=== PATIENT | female | born 1990 | race Caucasian/White ===

== ENCOUNTER → 2018-02-17 | Day surgery (SDC) | payer OTHER ==
[~2018-02-17] MED LIST: BUPIVACAINE HCL 0.5 % INJ/PF 30 ML SDV ONE; LIDOCAINE 1% INJ-PF (10 MG/ML) 30 ML SDV ONE; METHYLPREDNISOLONE ACETATE INJ 40 MG/1 ML ML ONE
--- NOTE | 2018-02-17 14:23 | RADIOLOGY REPORT (SQ) ---
EXAM DESCRIPTION: INJECT/ASPIR HIP/SHLDR/KNEE; FLUORO/NEEDLE PLACEMENT COMPLETED DATE/TIME: 02/17/2018 1:38 pm REASON FOR STUDY: LEFT HIP PAIN (M25.552) S/P L HIP SCOPE ON 08/29/17 M25.552 PAIN IN LEFT HIP COMPARISON: None. FLUOROSCOPY TIME: 14 seconds 1 images saved to PACS. LIMITATIONS: None. PROCEDURE: SITE OF INJECTION: Left hip LOCALIZING CONTRAST TYPE AND DOSE: 1 mL Omnipaque MEDICATION TYPE AND DOSE: 80 mg Depo-Medrol, 5 mL 0.5% Sensorcaine. Using local anesthesia and sterile technique with fluoroscopic guidance, the needle was advanced into the joint. Iodinated contrast was injected to verify intraarticular placement. This was followed by therapeutic injection of the indicated medications. The needle was removed. There were no immediat e complications. Preprocedure pain level: 3/10. Postprocedure pain level: 0/10. IMPRESSION: THERAPEUTIC INJECTION OF THE LEFT HIP JOINT ABOVE. COMMENT: Patient medication list reviewed: Yes- Quality ID# [id number]:Eligible professional attests to doc umenting in the medical record they obtained, updated, or reviewed the patient's current medications. . Quality ID 145: Final reports for procedures using fluoroscopy that document radiation exposure chantal alyson, or exposure time and number of fluorographic images (if radiation exposure indices are not avail able) TECHNICAL DOCUMENTATION: JOB ID: [id number] [email or web address]- All Rights Reserved Reading location - IP/workstation name: [email or web address] [id number]
--- NOTE | 2018-02-17 14:23 | RADIOLOGY REPORT (SQ) ---
EXAM DESCRIPTION: INJECT/ASPIR HIP/SHLDR/KNEE; FLUORO/NEEDLE PLACEMENT COMPLETED DATE/TIME: 02/17/2018 1:38 pm REASON FOR STUDY: LEFT HIP PAIN (M25.552) S/P L HIP SCOPE ON 08/29/17 M25.552 PAIN IN LEFT HIP COMPARISON: None. FLUOROSCOPY TIME: 14 seconds 1 images saved to PACS. LIMITATIONS: None. PROCEDURE: SITE OF INJECTION: Left hip LOCALIZING CONTRAST TYPE AND DOSE: 1 mL Omnipaque MEDICATION TYPE AND DOSE: 80 mg Depo-Medrol, 5 mL 0.5% Sensorcaine. Using local anesthesia and sterile technique with fluoroscopic guidance, the needle was advanced into the joint. Iodinated contrast was injected to verify intraarticular placement. This was followed by therapeutic injection of the indicated medications. The needle was removed. There were no immediat e complications. Preprocedure pain level: 3/10. Postprocedure pain level: 0/10. IMPRESSION: THERAPEUTIC INJECTION OF THE LEFT HIP JOINT ABOVE. COMMENT: Patient medication list reviewed: Yes- Quality ID# [id number]:Eligible professional attests to doc umenting in the medical record they obtained, updated, or reviewed the patient's current medications. . Quality ID 145: Final reports for procedures using fluoroscopy that document radiation exposure chantal alyson, or exposure time and number of fluorographic images (if radiation exposure indices are not avail able) TECHNICAL DOCUMENTATION: JOB ID: [id number] [employer]- All Rights Reserved Reading location - IP/workstation name: [email or web address] [id number]
== END ==
LOC: RAD 12:22
PROVIDERS: ATTEND Orthopaedic Surgery Sports Medicine
DX: M25.552 Pain in left hip (principal)
CPT/HCPCS: 20610; 77002; J3490 ×2; J1020

== ENCOUNTER → 2018-04-02 | Day surgery (SDC) | payer OTHER ==
[~2018-04-02] MED LIST changes: -METHYLPREDNISOLONE ACETATE INJ 40 MG/1 ML ML ONE; +METHYLPREDNISOLONE ACETATE INJ 80 MG/1 ML VIAL ONE
--- NOTE | 2018-04-02 16:00 | RADIOLOGY REPORT (SQ) ---
EXAM DESCRIPTION: INJECT/ASPIR HIP/SHLDR/KNEE; FLUORO/NEEDLE PLACEMENT COMPLETED DATE/TIME: 04/02/2018 1:57 pm REASON FOR STUDY: PAIN IN LEFT HIP (M25.552), OTHER SPECIFIED JOINT DISORDERS, LEFT HIP (M25. M25.85 2 OTHER SPECIFIED JOINT DISORDERS, LEFT HIP M25.552 PAIN IN LEFT HIP COMPARISON: None. FLUOROSCOPY TIME: 48 seconds of fluoroscopy was used. 2 images saved to PACS. LIMITATIONS: None. PROCEDURE: SITE OF INJECTION: Left iliopsoas tendon sheath injection LOCALIZING CONTRAST TYPE AND DOSE: 2 mL MEDICATION TYPE AND DOSE: 80 mg Depo-Medrol and 80 mL of Sensorcaine Using local anesthesia and sterile technique with fluoroscopic guidance, the needle was advanced into the iliopsoas tendon sheath bursa. Iodinated contrast was injected to verify intraarticular placemen t. This was followed by therapeutic injection of the indicated medications. The needle was removed. There were no immediate complications. Preprocedure pain level: 6/10. Postprocedure pain level: 2/10. IMPRESSION: THERAPEUTIC INJECTION OF THE LEFT ILEO PSOAS TENDON SHEATH ABOVE. COMMENT: Patient medication list reviewed: Yes- Quality ID# [id number]:Eligible professional attests to doc umenting in the medical record they obtained, updated, or reviewed the patient's current medications. . Quality ID 145: Final reports for procedures using fluoroscopy that document radiation exposure chantal alyson, or exposure time and number of fluorographic images (if radiation exposure indices are not avail able) TECHNICAL DOCUMENTATION: JOB ID: [id number] [employer]- All Rights Reserved Reading location - IP/workstation name: [email or web address] [id number]
--- NOTE | 2018-04-02 16:00 | RADIOLOGY REPORT (SQ) ---
EXAM DESCRIPTION: INJECT/ASPIR HIP/SHLDR/KNEE; FLUORO/NEEDLE PLACEMENT COMPLETED DATE/TIME: 04/02/2018 1:57 pm REASON FOR STUDY: PAIN IN LEFT HIP (M25.552), OTHER SPECIFIED JOINT DISORDERS, LEFT HIP (M25. M25.85 2 OTHER SPECIFIED JOINT DISORDERS, LEFT HIP M25.552 PAIN IN LEFT HIP COMPARISON: None. FLUOROSCOPY TIME: 48 seconds of fluoroscopy was used. 2 images saved to PACS. LIMITATIONS: None. PROCEDURE: SITE OF INJECTION: Left iliopsoas tendon sheath injection LOCALIZING CONTRAST TYPE AND DOSE: 2 mL MEDICATION TYPE AND DOSE: 80 mg Depo-Medrol and 80 mL of Sensorcaine Using local anesthesia and sterile technique with fluoroscopic guidance, the needle was advanced into the iliopsoas tendon sheath bursa. Iodinated contrast was injected to verify intraarticular placemen t. This was followed by therapeutic injection of the indicated medications. The needle was removed. There were no immediate complications. Preprocedure pain level: 6/10. Postprocedure pain level: 2/10. IMPRESSION: THERAPEUTIC INJECTION OF THE LEFT ILEO PSOAS TENDON SHEATH ABOVE. COMMENT: Patient medication list reviewed: Yes- Quality ID# [id number]:Eligible professional attests to doc umenting in the medical record they obtained, updated, or reviewed the patient's current medications. . Quality ID 145: Final reports for procedures using fluoroscopy that document radiation exposure chantal alyson, or exposure time and number of fluorographic images (if radiation exposure indices are not avail able) TECHNICAL DOCUMENTATION: JOB ID: [id number] [employer]- All Rights Reserved Reading location - IP/workstation name: [email or web address] [id number]
== END ==
LOC: RAD 13:03
PROVIDERS: ATTEND Orthopaedic Surgery Sports Medicine
DX: M25.852 Other specified joint disorders, left hip (principal); M25.552 Pain in left hip
CPT/HCPCS: 20610; 77002; J3490 ×2; J1040